=== PATIENT | female | born 1940 | race Caucasian/White ===

== ENCOUNTER 2019-04-24 00:39 | Emergency (ER) | payer MEDICARE, OTHER ==
[~2019-04-24] VITALS: Ht 170.2 cm; Wt 76.7 kg
[~2019-04-24 00:39] MED LIST: CARV6.25 PO; LOSA25TA11 PO; RABE20TA18 PO; SIMV10TA15 PO; TRAM50TA PO
--- NOTE | 2019-04-24 00:43 | PHYS DOC ---
Past History Past Medical History: Arthritis, High Cholesterol, Hypertension Past Surgical History: Other Alcohol Use: Rarely Drug Use: None Adult General HPI HPI Patient is a 79-year-old female who was brought here by EMS from her house due to altered mental status. Last KNOWN normal was 5 minutes after midnight. Her found her sitting on the TOILET unresponsive, vomiting. EMS were called, she was only responding to painful stimuli. Her oxygen saturation were in the 80 %, she was put on oxygen. Her blood sugar was around 145. She was found to be extremely hypertensive. Patient has history of HTN AND high cholesterol. She is not on blood thinner. Her said she was doing fine this evening. She did not sustain any trauma. Upon arrival to room, patient was only responsive to painful stimuli. She was observed moving her legs and left upper extremity. Her oxygen saturation was in 87 % range on a nonrebreather. Her pupils were pinpoint but reactive. Her blood pressure was 215/117, heart rate of 88 bpm. No sign of trauma. EMS REPORTED THAT SHE WAS ACTING LIKE SHE WAS HAVING CONVULSION WHILE ON ROUTE. Review of Systems Review of Systems aLL OTHER ros IS NEGATIVE UNLESS OTHERWISE NOTED IN hpi UNRESPONSIVE, NOT ABLE TO OBTAIN Allergies Allergies See above Allergies Coded Allergies Type Severity Reaction Last Updated Verified No Known Drug Allergies 02/05/14 No Physical Exam Physical Exam Constitutional: Well developed, well nourished,UNRESPONSIVE TO VERBAL. HENT: Normocephalic, atraumatic, bilateral external ears normal, oropharynx moist, no oral exudates, nose normal. [] Eyes: PERRLA, EOMI, conjunctiva normal, no discharge. PINPOINT BILATERALLY, JOANNA Y SLUGGISH. Neck: Normal range of motion, no tenderness, supple, no stridor. [] Cardiovascular:Heart rate regular rhythm, no murmur [] Lungs & Thorax: Bilateral breath sounds clear to auscultation [] Abdomen: Bowel sounds normal, soft, no tenderness, no masses, no pulsatile masses. [] Skin: Warm, dry, no erythema, no rash. [] Back: NO TRAUMA Extremities: no cyanosis, no clubbing, ROM intact, no edema. NO TRAUMA Neurologic: UNRESPONSIVE TO VERBAL, ONLY RESPONSIVE TO PAIN. NONVERBAL...OBSERVED MOVING LOWER EXTREMITIES AND LEFT ARM. Psychologic: UNABLE TO OBTAIN DUE TO UNRESPONSIVE Current Patient Data Vital Signs Laboratory Tests Test 04/24/19 00:49 3/3/20 00:55 04/24/19 01:23 Glucose (Fingerstick) 169 mg/dL White Blood Count 7.3 x10^3/uL Red Blood Count 4.73 x10^6/uL Hemoglobin 13.8 g/dL Hematocrit 42.8 % Mean Corpuscular Volume 90 fL Mean Corpuscular Hemoglobin 29 pg Mean Corpuscular Hemoglobin Concent 32 g/dL Red Cell Distribution Width 15.1 % Platelet Count 200 x10^3/uL Neutrophils (%) (Auto) 68 % Lymphocytes (%) (Auto) 19 % Monocytes (%) (Auto) 11 % Eosinophils (%) (Auto) 1 % Basophils (%) (Auto) 1 % Neutrophils # (Auto) 4.9 x10^3uL Lymphocytes # (Auto) 1.4 x10^3/uL Monocytes # (Auto) 0.8 x10^3/uL Eosinophils # (Auto) 0.1 x10^3/uL Basophils # (Auto) 0.1 x10^3/uL Sodium Level 142 mmol/L Potassium Level 3.9 mmol/L Chloride Level 106 mmol/L Carbon Dioxide Level 26 mmol/L Anion Gap 10 Blood Urea Nitrogen 18 mg/dL Creatinine 0.7 mg/dL Estimated GFR (Cockcroft-Gault) 80.7 BUN/Creatinine Ratio 26 Glucose Level 159 mg/dL Calcium Level 8.7 mg/dL Magnesium Level 2.2 mg/dL Total Bilirubin 0.7 mg/dL Aspartate Amino Transf (AST/SGOT) 21 U/L Alanine Aminotransferase (ALT/SGPT) 21 U/L Alkaline Phosphatase 80 U/L Troponin I Quantitative < 0.017 ng/mL [id number] Natriuretic Peptide 191 pg/mL Total Protein 6.8 g/dL Albumin 3.5 g/dL Albumin/Globulin Ratio 1.1 Urine Collection Type Unknown Urine Color Yellow Urine Clarity Clear Urine pH 7.5 Urine Specific [place] 1.020 Urine Protein Neg Urine Glucose (UA) 100 mg/dL Urine Ketones (Stick) Neg mg/dL Urine Blood Trace Urine Nitrite Neg Urine Bilirubin Neg Urine Urobilinogen Dipstick 0.2 mg/dL Urine Leukocyte Esterase Neg Urine RBC 1-2 /HPF Urine WBC Occ /HPF Urine Squamous Epithelial Cells Occ /LPF Urine Bacteria 0 /HPF Current Medications Medications (Trade) Dose Ordered Sig/Cyrus Route PRN Reason Start Time Stop Time Status Last Admin Dose Admin Ondansetron HCl (Zofran) 4 mg 1X ONCE IVP 04/24/19 01:00 04/24/19 01:01 DC 04/24/19 00:53 Levetiracetam 1000 mg/Sodium Chloride 100 ml @ 400 mls/hr 1X ONCE IV 04/24/19 01:00 04/24/19 01:14 DC 04/24/19 01:58 Labetalol HCl (Normodyne) 20 mg 1X ONCE IVP 04/24/19 01:00 04/24/19 01:01 DC 04/24/19 01:00 Nicardipine HCl 50 mg/Sodium Chloride 270 ml @ 27 mls/hr CONT PRN IV SEE I/O RECORD 04/24/19 01:00 04/24/19 02:04 DC 04/24/19 01:10 Sodium Chloride 100 ml @ As Directed STK-MED ONCE .ROUTE 04/24/19 00:54 04/24/19 00:54 DC Levetiracetam (Keppra) 500 mg STK-MED ONCE IV 04/24/19 00:54 04/24/19 00:54 DC Etomidate (Amidate) 20 mg 1X ONCE IV 04/24/19 01:30 04/24/19 01:31 DC 04/24/19 01:06 Succinylcholine Chloride (Anectine) 100 mg 1X ONCE IV 04/24/19 01:30 04/24/19 01:31 DC 04/24/19 01:06 Propofol (Diprivan) 200,000 mcg 1X ONCE IV 04/24/19 01:30 04/24/19 01:31 DC 04/24/19 01:13 Propofol 100 ml @ As Directed STK-MED ONCE IV 04/24/19 00:56 04/24/19 00:56 DC Sodium Chloride 250 ml @ As Directed STK-MED ONCE .ROUTE 04/24/19 01:03 04/24/19 01:03 DC Nicardipine HCl (Cardene) 25 mg STK-MED ONCE IV 04/24/19 01:03 04/24/19 01:03 DC Laboratory Tests Test 04/24/19 00:49 04/24/19 00:55 Glucose (Fingerstick) 169 mg/dL White Blood Count 7.3 x10^3/uL Red Blood Count 4.73 x10^6/uL Hemoglobin 13.8 g/dL Hematocrit 42.8 % Mean Corpuscular Volume 90 fL Mean Corpuscular Hemoglobin 29 pg Mean Corpuscular Hemoglobin Concent 32 g/dL Red Cell Distribution Width 15.1 % Platelet Count 200 x10^3/uL Neutrophils (%) (Auto) 68 % Lymphocytes (%) (Auto) 19 % Monocytes (%) (Auto) 11 % Eosinophils (%) (Auto) 1 % Basophils (%) (Auto) 1 % Neutrophils # (Auto) 4.9 x10^3uL Lymphocytes # (Auto) 1.4 x10^3/uL Monocytes # (Auto) 0.8 x10^3/uL Eosinophils # (Auto) 0.1 x10^3/uL Basophils # (Auto) 0.1 x10^3/uL Sodium Level 142 mmol/L Potassium Level 3.9 mmol/L Chloride Level 106 mmol/L Carbon Dioxide Level 26 mmol/L Anion Gap 10 Blood Urea Nitrogen 18 mg/dL Creatinine 0.7 mg/dL Estimated GFR (Cockcroft-Gault) 80.7 BUN/Creatinine Ratio 26 Glucose Level 159 mg/dL Calcium Level 8.7 mg/dL Magnesium Level 2.2 mg/dL Total Bilirubin 0.7 mg/dL Aspartate Amino Transf (AST/SGOT) 21 U/L Alanine Aminotransferase (ALT/SGPT) 21 U/L Alkaline Phosphatase 80 U/L Troponin I Quantitative < 0.017 ng/mL NZ-[id number]-Type Natriuretic Peptide 191 pg/mL Total Protein 6.8 g/dL Albumin 3.5 g/dL Albumin/Globulin Ratio 1.1 Current Medications Medications (Trade) Dose Ordered Sig/Cyrus Route PRN Reason Start Time Stop Time Status Last Admin Dose Admin Ondansetron HCl (Zofran) 4 mg 1X ONCE IVP 04/24/19 01:00 04/24/19 01:01 DC 04/24/19 00:53 Levetiracetam 1000 mg/Sodium Chloride 100 ml @ 400 mls/hr 1X ONCE IV 04/24/19 01:00 04/24/19 01:14 DC Labetalol HCl (Normodyne) 20 mg 1X ONCE IVP 04/24/19 01:00 04/24/19 01:01 DC 04/24/19 01:00 Nicardipine HCl 50 mg/Sodium Chloride 270 ml @ 27 mls/hr CONT PRN IV SEE I/O RECORD 04/24/19 01:00 04/24/19 01:10 Sodium Chloride 100 ml @ As Directed STK-MED ONCE .ROUTE 04/24/19 00:54 04/24/19 00:54 DC Levetiracetam (Keppra) 500 mg STK-MED ONCE IV 04/24/19 00:54 04/24/19 00:54 DC Etomidate (Amidate) 20 mg 1X ONCE IV 04/24/19 01:30 04/24/19 01:31 Succinylcholine Chloride (Anectine) 100 mg 1X ONCE IV 04/24/19 01:30 04/24/19 01:31 Propofol (Diprivan) 200,000 mcg 1X ONCE IV 04/24/19 01:30 04/24/19 01:31 04/24/19 01:13 Propofol 100 ml @ As Directed STK-MED ONCE IV 04/24/19 00:56 04/24/19 00:56 DC Sodium Chloride 250 ml @ As Directed STK-MED ONCE .ROUTE 04/24/19 01:03 04/24/19 01:03 DC Nicardipine HCl (Cardene) 25 mg STK-MED ONCE IV 04/24/19 01:03 04/24/19 01:03 DC EKG EKG EKG was done, at 12:57 am, rate of 67 bpm, SINUS RHYTHM, NO STEMI.[] Radiology/Procedures Radiology/Procedures [][place] [id number] IMAGING REPORT Signed PATIENT: VANESSA VALENTINO LACCOUNT: [id number] : 1940 LOCATION: ER AGE: 79 SEX: F EXAM STATUS: REG ER ORD. PHYSICIAN: EMILIA REDDY DO REASON: unresponsive PROCEDURE: CT CODE STROKE HEAD WO CT CODE STROKE HEAD WO History: Unresponsive Comparison: February 05, 2014 Technique: Noncontrast CT imaging was performed of the head. Exposure: One or more of the following individualized dose reduction techniques were utilized for this examination: 1. Automated exposure control 2. Adjustment of the mA and/or kV according to patient size 3. Use of iterative reconstruction technique. Findings: Acute hemorrhage is within the tylor extending into the right brachium pontis and right cerebellum. There is adjacent edema. Mild adjacent mass effect on the prepontine cistern and partial effacement of the fourth ventricle. Mildly dilated lateral ventricles compared to 2014. Extensive foci of decreased attenuation within the hemispheric white matter, may relate to sequelae of chronic microvascular ischemia. Imaged orbits are unremarkable. Imaged paranasal sinuses and mastoid air cells are clear. No acute calvarial fracture. Impression: 1. 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 Mass effect on the prepontine cistern and partial effacement of the fourth ventricle. 2. Mildly increased ventricular size compared to 2014, may represent developing hydrocephalus. Recommend follow-up. FOR INTERNAL CODING PURPOSES Critical result: Findings discussed with EMILIA REDDY at 04/24/2019 12:54 AM. RESULT CODE: (C) Electronically signed by: Walter Donaldson DO (04/24/2019 1:01 AM) [id number] DICTATED AND SIGNED BY: WALTER DONALDSON DO DATE: 04/24/19100 CC: ABBY KHAN MD; EMILIA REDDY DO ~ Course & Med Decision Making Course & Med Decision Making Pertinent Labs and Imaging studies reviewed. (See chart for details) Patient is a 79-year-old female with hypertensive urgency, intracranial hemorrhage, intubated, patient will be transferred to [facility]. SHe was given labetalol initially for hypertension, she was put on Cardene drip. Patient was intubated, she was given propofol for sedation. SHe was given Keppra IV to prevent seizure. Patient's condition was discussed with patient's and her daughter. Critical care time was [45 ] minutes exclusive of procedures. Dragon Disclaimer Dragon Disclaimer This electronic medical record was generated, in whole or in part, using a voice recognition dictation system. Departure Departure: Impression: Primary Impression: Intracranial hemorrhage Additional Impression: Malignant hypertensive urgency Disposition: T-FORM[facility], LATER [facility] ([facility], ACCEPTED BY DR. ESVIN URRUTIA) Condition: GUARDED Referrals: ABBY KHAN MD (PCP) Intubation Intubation : Time of Intubation: 01:07 Intubation Method: orotracheal Tube Size (cm): 7.5 Medications: Succinylcholine (AND ETOMIDATE) Breath Sounds after Intubation: equal Intubation Complications: no complications Post Intubation Xray: Yes Progress/Xray Impression: ET IN CORRECT POSITION Problem Qualifiers EMILIA REDDY DO Apr 24, 2019 00:43
[2019-04-24] MEDS ORDERED: IV NORMAL SALINE 100ML 100 ML ONE (00:54)
[2019-04-24] MEDS ORDERED: levETIRAcetam 500 MG/5 ML VIAL IV ONE (00:54)
[2019-04-24] MEDS ORDERED: PROPOFOL 100 ML IV ONE (00:56)
[2019-04-24] MEDS ORDERED: PROPOFOL 10,000 MCG/ML (100ML) VIAL IV ONE (00:56)
[2019-04-24] MEDS ORDERED: LABETALOL 20 MG/4 ML DISP.SYRIN. IVP ONE (01:00)
[2019-04-24] MEDS ORDERED: ONDANSETRON PF 4 MG/2 ML VIAL. IVP ONE (01:00)
[2019-04-24] MEDS ORDERED: IV NORMAL SALINE 250ML 250 ML ONE (01:03)
--- NOTE | 2019-04-24 01:04 | RAD ---
CT CODE STROKE HEAD WO History: Unresponsive Comparison: February 05, 2014 Technique: Noncontrast CT imaging was performed of the head. Exposure: One or more of the following individualized dose reduction techniques were utilized for this examination: 1. Automated exposure control 2. Adjustment of the mA and/or kV according to patient size 3. Use of iterative reconstruction technique. Findings: Acute hemorrhage is within the tylor extending into the right brachium pontis and right cerebellum. There is adjacent edema. Mild adjacent mass effect on the prepontine cistern and partial effacement of the fourth ventricle. Mildly dilated lateral ventricles compared to 2014. Extensive foci of decreased attenuation within the hemispheric white matter, may relate to sequelae of chronic microvascular ischemia. Imaged orbits are unremarkable. Imaged paranasal sinuses and mastoid air cells are clear. No acute calvarial fracture. Impression: 1. 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 Mass effect on the prepontine cistern and partial effacement of the fourth ventricle. 2. Mildly increased ventricular size compared to 2014, may represent developing hydrocephalus. Recommend follow-up. FOR INTERNAL CODING PURPOSES Critical result: Findings discussed with EMILIA REDDY at 04/24/2019 12:54 AM. RESULT CODE: (C) Electronically signed by: Walter Donaldson DO (04/24/2019 1:01 AM) [id number]
[2019-04-24 01:09] LABS: BASO # 0.1 x10^3/uL (0.0-0.2); BASO % 1 % (0-3); EOS # 0.1 x10^3/uL (0.0-0.7); EOS % 1 % (0-3); HEMATOCRIT 42.8 % (36.0-47.0); HEMOGLOBIN 13.8 g/dL (12.0-15.5); LYMPH # 1.4 x10^3/uL (1.0-4.8); LYMPH % 19 % (24-48); MEAN CORPUSCULAR HEMOGLOBIN 29 pg (25-35); MEAN CORPUSCULAR HGB CONC 32 g/dL (31-37); MEAN CORPUSCULAR VOLUME 90 fL (79-100); MONO # 0.8 x10^3/uL (0.0-1.1); MONO % 11 % (0-9); NEUT # 4.9 x10^3uL (1.8-7.7); NEUT % 68 % (31-73); PLATELET COUNT 200 x10^3/uL (140-400); RED BLOOD COUNT 4.73 x10^6/uL (3.50-5.40); RED CELL DISTRIBUTION WIDTH 15.1 % (11.5-14.5); WHITE BLOOD COUNT 7.3 x10^3/uL (4.0-11.0)
[2019-04-24 01:17] LABS: CALCIUM 8.7 mg/dL (8.5-10.1); CREATININE 0.7 mg/dL (0.6-1.0); GFR 80.7; POTASSIUM 3.9 mmol/L (3.5-5.1)
[2019-04-24 01:23] LABS: ALBUMIN 3.5 g/dL (3.4-5.0); ALBUMIN/GLOBULIN RATIO 1.1 (1.0-1.7); MAGNESIUM 2.2 mg/dL (1.8-2.4); TOTAL BILIRUBIN 0.7 mg/dL (0.2-1.0); TOTAL PROTEIN 6.8 g/dL (6.4-8.2)
[2019-04-24] MEDS ORDERED: ETOMIDATE 40 MG/20 ML VIAL. IV ONE (01:30)
[2019-04-24] MEDS ORDERED: PROPOFOL 10,000 MCG/ML (20ML) VIAL IV ONE (01:30)
[2019-04-24] MEDS ORDERED: SUCCINYLCHOLINE 200 MG/10 ML VIAL. IV ONE (01:30)
[2019-04-24 01:44] VITALS: BP 128/53
[2019-04-24 01:44] LABS: BACTERIA,URINE 0 /HPF (0-FEW); BILIRUBIN,URINE NEG (NEG); CLARITY,URINE CLEAR; COLOR,URINE YELLOW; GLUCOSE,URINE 100 mg/dL (NEG); NITRITE,URINE NEG (NEG); SQUAMOUS EPITHELIAL CELL,UR OCC /LPF; UROBILINOGEN,URINE 0.2 mg/dL (0.2 mg/dL); WBC,URINE OCC /HPF (0-4)
--- NOTE | 2019-04-24 02:56 | RAD ---
PORTABLE CHEST 1V History: Unresponsive. Vomiting. Aspiration. Comparison: None. Findings: Patchy bibasilar opacities, left greater than right. Endotracheal tube tip 2.5 cm above the jorgito. No pneumothorax. Normal heart size. Right midlung calcified granuloma. Impression: 1. Patchy bibasilar opacities, may represent atelectasis or consolidations and aspiration is possible. Electronically signed by: Walter Donaldson DO (04/24/2019 2:53 AM) [id number]
[2019-04-24] MEDS ORDERED: IV NORMAL SALINE 1,000ML 1,000 ML IV ONE (03:00)
--- NOTE | 2019-04-24 05:50 | EKG ---
[address] [address] Test Date: 2019-04-24 Test Time: 00:57:45 Pat Name: VANESSA VALENTINO Department: Room: Gender: F [employer]: : 1940 Requested By: EMILIA REDDY Order Number: [id number] Reading MD: Measurements Intervals Gray Rate: 67 P: 90 MS: 176 QRS: 87 QRSD: 88 T: 63 QT: 386 QTc: 411 Interpretive Statements SINUS RHYTHM LEFT ATRIAL ABNORMALITY ABNORMAL ECG RI6.01 No previous ECG available for comparison
== END 2019-04-24 02:02 | disposition short-term general hospital (02) ==
LOC: ER 00:39
DX: I62.9 Nontraumatic intracranial hemorrhage, unspecified (principal); I16.0 Hypertensive urgency; M19.90 Unspecified osteoarthritis, unspecified site; E78.00 Pure hypercholesterolemia, unspecified
CPT/HCPCS: 31500; 36415; 51702; 70450; 71045; 80053; 81001; 82947; 83735; 83880; 84484; 85025; 93005; 96365; 96375; 99285; J0330; J1953; J2405; J2704; J3490; J7050; 99291-25; J7030